=== PATIENT | female | born 1940 | race Caucasian/White ===

== ENCOUNTER → 2020-03-20 | Outpatient (CLI) | payer MEDICARE ==
[~2020-03-20] MED LIST: ASPIR 8181 MG PO; B COMPLEX PO; METOPROLOL PO; MULTI VIT PO; NORCO 5-325 TA1 EACH PO; VIT C PO; VIT D3 PO
== END ==
LOC: KOH-I 14:00
DX: M79.604 Pain in right leg (principal); M79.89 Other specified soft tissue disorders
CPT/HCPCS: 93971

== ENCOUNTER 2021-05-09 13:38 | Emergency (ER) | payer MEDICARE ==
[2021-05-09 14:26] LABS: HEMOGLOBIN 12.3 gm/dl (12.3-15.3); RED BLOOD COUNT 4.3 M/UL (4.00-5.10); WHITE BLOOD COUNT 8.9 K/UL (4.5-11.0)
[2021-05-09 14:44] LABS: BUN/CREATININE RATIO 16 (0-10)
== END 2021-05-09 16:13 | disposition home or self-care (01) ==
LOC: ER1 13:38
PROVIDERS: Physician Assistant
DX: R10.9 Unspecified abdominal pain (principal); I10 Essential (primary) hypertension
CPT/HCPCS: 80053; 81001; 85025; 99284